=== PATIENT | male | born 1995 | race Caucasian/White ===

== ENCOUNTER 2024-08-16 10:05 | Emergency (ER) | payer OTHER, SELFPAY ==
--- NOTE | ~2024-08-16 | XR_ITS ---
EXAMINATION: XR chest 2V DATE: 08/16/2024 13:29 INDICATION: Syncope. TECHNIQUE: Frontal and lateral views of the chest were obtained. COMPARISON: CT abdomen and pelvis 08/18/2013 FINDINGS: There is no pneumonia, pleural effusion, or pneumothorax. The heart size is normal. IMPRESSION: 1. No acute cardiopulmonary disease. Reviewed, dictated and finalized at location A. ARTIST
[2024-08-16 10:45] VITALS: BP 102/63; PULSE 79; RESP 15; TEMP 36.6; O2SAT 100
--- NOTE | 2024-08-16 12:24 | ED.SYNCOPE ---
HPI - Syncope General Chief Complaint: Syncope Stated Complaint: syncopal epsiode Time Seen by Provider: 08/16/24 12:24 Focused HPI: This is a 28 year old male that presents to the ER for a syncopal episode. He went to urgent care for evaluation of cold symptoms ongoing over the last 3 days. Reports fever, cough, shortness of breath, chest pain. Reports he started to feel very lightheaded/dizzy so he stood up to walk outside and passed out. Someone caught him and lowered him to the floor. GENERAL: Well-appearing, well-nourished, and in no acute distress. HEAD: Normocephalic, atraumatic. CHEST: Clear to auscultation. ?No respiratory distress. HEART: Regular rate and rhythm.? NEURO: ?Alert and oriented x3. Patient screened in triage and initial orders placed.? ?Additional care and disposition to be based upon?diagnostic testing and treatment. Related Data Allergies Allergy/AdvReac Type Severity Reaction Status Date / Time No Known Allergies Allergy Verified 08/16/24 10:51 Review of Systems Review of Systems: All systems reviewed & are unremarkable except as noted in HPI and below Course Vital Signs Vital signs: Vital Signs Temperature 97.9 F 08/16/24 10:45 Pulse Rate 79 08/16/24 10:45 Respiratory Rate 15 08/16/24 10:45 Blood Pressure 102/63 08/16/24 10:45 Pulse Oximetry 100 08/16/24 10:45 Oxygen Delivery Room Air 08/16/24 10:45 Temperature 97.9 F 08/16/24 10:45 Pulse Rate 72 08/16/24 16:02 Respiratory Rate 21 H 08/16/24 16:02 Blood Pressure 129/69 08/16/24 16:01 Pulse Oximetry 100 08/16/24 16:02 Oxygen Delivery Room Air 08/16/24 10:45 MDM - Syncope Lab Data 08/16/24 14:19 08/16/24 14:19 Labs: Lab Results 08/16/24 Range/Units 14:19 WBC 5.3 (4.5-10.0) K/mm3 RBC 5.25 (4.6-6.20) M/mm3 Hgb 15.7 (14.0-18.0) g/dL Hct 45.3 (42.0-52.0) % MCV 86.3 (80-100) fl MCH 29.9 (26-34) pg MCHC 34.7 (32-36) g/dl RDW 13.0 (11.5-14.5) % Plt Count 245 (150-375) k/mm3 MPV 9.6 (7.4-10.4) fl Immature Gran % (Auto) 0.6 H (0-0.5) % Neut % (Auto) 66.8 (45.5-73.1) % Lymph % (Auto) 21.9 (18.3-44.2) % [place] % (Auto) 10.3 H (2.6-8.5) % Eos % (Auto) 0.0 (0-4.4) % Baso % (Auto) 0.4 (0.2-1.2) % Lymph # (Auto) 1.15 (0.9-3.2) K/mm3 [place] # (Auto) 0.5 (0.1-0.6) K/mm3 Eos # (Auto) 0.0 (0-0.3) K/mm3 Baso # (Auto) 0.0 (0.0-0.1) K/mm3 Abs Immat Gran (auto) 0.03 (0.00-0.031) K/mm3 Absolute Neuts (auto) 3.5 (1.3-6.7) K/mm3 Absolute Nucleated RBC 0.000 (0.0-0.012) K/mm3 Nucleated RBC % 0.0 (0.0-0.2) % Sodium 135 L (137-145) mmol/L Potassium 4.0 (3.4-5.0) mmol/L Chloride 100 (98-107) mmol/L Carbon Dioxide 24 (22-30) mmol/L Anion Gap 11 (4-12) mmol/L BUN 10 (9-20) mg/dL Creatinine 1.13 (0.7-1.3) mg/dL Estim Creat Clear Calc 81 ml/min Estimated GFR > 60 (59 - ) Glucose 123 H (65-110) mg/dL Calcium 9.1 (8.4-10.2) mg/dL Total Bilirubin 1.0 (0.2-1.3) mg/dL AST 58 (17-59) U/L ALT 93 H (6-50) U/L Alkaline Phosphatase 110 (38-126) U/L Troponin I < 0.012 (0.000-0.034) ng/mL Total Protein 7.0 (6.3-8.2) g/dL Albumin 4.4 (3.5-5.1) g/dL Influenza A (RT-PCR) Negative (Negative) Influenza B (RT-PCR) Positive A (Negative) RSV (RT-PCR) Negative (Negative) SARS-CoV-2 RNA (RT-PCR) Negative (Negative) Imaging Data Radiologist's impression: ITS Impressions Chest X-Ray 08/16/24 13:37 IMPRESSION: 1. No acute cardiopulmonary disease. Discharge Plan Discharge Clinical Impression: Syncope and collapse, Influenza B Patient Disposition: Home, Self-Care Condition: Stable Instructions: Antibiotic Form, Syncope (DC), Influenza (DC) Additional Instructions: He tested positive for influenza, your vital signs have been stable, your workup was very reassuring, no electrolyte problems, dehydration or cardiac issues. Follow-up with regular doctor. We will send you home with medications including Tamiflu, guaifenesin, Zofran for nausea, Toradol for aches and pains. Maintain good oral hydration, return with any concerns. Patient Language: Kiswahili Prescriptions: New benzonatate 200 mg capsule 200 mg PO TID PRN (Reason: cough) Qty: 20 0RF ketorolac 10 mg tablet 10 mg PO Q8H PRN (Reason: pain) 5 Days Qty: 20 0RF Rx Instructions: maximum total duration of 5 days from all oral, intranasal, or parenteral formulations ondansetron 4 mg tablet,disintegrating 4 mg PO Q8H PRN (Reason: nausea and vomiting) Qty: 10 0RF guaifenesin [Mucinex] 1,200 mg tablet extended release 12hr 1,200 mg PO Q12H Qty: 20 0RF oseltamivir [Tamiflu] 75 mg capsule 75 mg PO Q12H 5 Days Qty: 10 0RF Follow-up/Referrals: UNKNOWN,DOCTOR [Primary Care Provider] - Time of Disposition: 15:47
--- NOTE | 2024-08-16 12:26 | ECG_ITS ---
Test Date: 2024-08-16 14:12:53 Measurements Intervals [place] Rate: 84 P: 58 VT: 139 QRS: 38 QRSD: 91 T: 40 QT: 335 QTc: 398 Interpretive Statements SINUS RHYTHM POSSIBLE LEFT ATRIAL ENLARGEMENT INCOMPLETE RIGHT BUNDLE BRANCH BLOCK BORDERLINE T WAVE ABNORMALITY- DIFFUSE LEADS BASELINE ARTIFACT- I, II, III, AVR, AVL, AVF BORDERLINE ECG No previous ECG available for comparison Electronically Signed On 08-16-2024 14:18:09 [employer]ER by Khurram Leary D.O.
[2024-08-16 14:32] LABS: Basophils Percent Auto 0.4 % (0.2-1.2); Hematocrit 45.3 % (42.0-52.0); Hemoglobin 15.7 g/dL (14.0-18.0); Immature Granulocyte Absolute 0.03 K/mm3 (0.00-0.031); Immature Granulocyte Percent A 0.6 % (0-0.5); Lymphocytes Absolute Auto 1.15 K/mm3 (0.9-3.2); Lymphocytes Percent Auto 21.9 % (18.3-44.2); Mean Corpuscular HGB Conc 34.7 g/dl (32-36); Mean Corpuscular Hemoglobin 29.9 pg (26-34); Mean Corpuscular Volume 86.3 fl (80-100); Mean Platelet Volume 9.6 fl (7.4-10.4); Monocytes Absolute Auto 0.5 K/mm3 (0.1-0.6); Monocytes Percent Auto 10.3 % (2.6-8.5); Neutrophils Absolute Auto 3.5 K/mm3 (1.3-6.7); Neutrophils Percent Auto 66.8 % (45.5-73.1); Platelet Count Result 245 k/mm3 (150-375); Red Blood Count 5.25 M/mm3 (4.6-6.20); White Blood Count 5.3 K/mm3 (4.5-10.0)
[2024-08-16 14:43] LABS: Alanine Aminotransferase 93 U/L (6-50); Albumin Level 4.4 g/dL (3.5-5.1); Alkaline Phosphatase 110 U/L (38-126); Anion Gap 11 mmol/L (4-12); Aspartate Amino Transferase 58 U/L (17-59); Blood Urea Nitrogen 10 mg/dL (9-20); Calcium 9.1 mg/dL (8.4-10.2); Carbon Dioxide 24 mmol/L (22-30); Chloride 100 mmol/L (98-107); Estimated CRCL calculation 81 ml/min; Estimated Glomerular Filt Rate > 60; Glucose 123 mg/dL (65-110); Sodium 135 mmol/L (137-145)
[2024-08-16 14:54] LABS: Troponin I < 0.012 ng/mL (0.000-0.034)
[2024-08-16 15:13] LABS: Influenza A QL RT-PCR Negative (Negative); Influenza B QL RT-PCR Positive (Negative); RSV RNA, RT-PCR Negative (Negative); SARS-CoV-2 RNA PCR Negative (Negative)
[2024-08-16 15:25] VITALS: PULSE 83
[2024-08-16 15:26] VITALS: BP 130/77; PULSE 79; RESP 17; O2SAT 100
--- NOTE | 2024-08-16 15:31 | ED_ITS ---
HPI - Syncope General Chief Complaint: Syncope Stated Complaint: syncopal epsiode Time Seen by Provider: 08/16/24 12:24 History of Present Illness HPI narrative: 28-year-old otherwise healthy male presenting to the emergency department via EMS after a syncopal event at urgent care. Patient has not been feeling well for the last 3-4 days with positive exposures to both COVID a and influenza around the household. Expresses hot flashes, fever, chills, cough, shortness of breath. He is tolerating p.o. intake without any nausea or vomiting. No diarrhea or loose stools. Appears well hydrated. He states he was feeling hot flash tried urgent care after being swab for viral panel, had a syncopal event for brief loss of consciousness without head trauma. Is presently awake alert oriented as baseline mentation with no neurological complaints. No headache or vision changes. Related Data Allergies Allergy/AdvReac Type Severity Reaction Status Date / Time No Known Allergies Allergy Verified 08/16/24 10:51 Review of Systems 2 Review of Systems: As reviewed above in HPI Exam 2 Narrative: GENERAL: [Well-appearing, well-nourished, and in no acute distress.] HEAD: [Normocephalic, atraumatic.] EYES: [PERRLA and EOMI.] ENT: Nares clear, no rhinorrhea or epistaxis. Mucous membranes moist. NECK: Supple. CHEST: [Clear to auscultation. No respiratory distress.] HEART: [Regular rate and rhythm]. No murmur heard. [Normal peripheral pulses.] ABDOMEN: [Soft, nondistended], [nontender], [No rigidity or guarding] EXTREMITIES: Normal range of motion. [No edema.] SKIN: Warm, dry, no rash. NEURO: [No focal deficits]. Alert and oriented [x3.] PSYCH: [Normal mood and affect.] Course Vital Signs Vital signs: Vital Signs Temperature 36.6 C 08/16/24 10:45 Pulse Rate 79 08/16/24 10:45 Respiratory Rate 15 08/16/24 10:45 Blood Pressure 102/63 08/16/24 10:45 Pulse Oximetry 100 08/16/24 10:45 Oxygen Delivery Room Air 08/16/24 10:45 Temperature 36.6 C 08/16/24 10:45 Pulse Rate 79 08/16/24 15:26 Respiratory Rate 17 08/16/24 15:26 Blood Pressure 130/77 08/16/24 15:26 Pulse Oximetry 100 08/16/24 15:26 Oxygen Delivery Room Air 08/16/24 10:45 MDM - Syncope MDM Narrative Medical decision making narrative: 28-year-old otherwise healthy male presenting with flu-like symptoms a syncopal event today. Symptoms going on for last 3 days. Has syncopal event today after feeling hot flushed at Urgent Care while obtaining a COVID swab. He has normal hemodynamic vitals here, no tachycardia, fever, hypoxia. He is coughing frequently throughout the examination but is clear breath sounds. Soft nontender nondistended abdomen, symmetric pulses throughout both arms. Overall well-appearing, no headache or vision changes. No neurological findings. Patient likely had a vasovagal event versus orthostatic event versus dehydration. He is otherwise comfortable appearing. Cardiac workup was ordered including troponin, EKG, chest x-ray. Viral swabs obtained. Patient was able tolerate oral intake with a full Gatorade without any nausea vomiting. Workup shows no leukocytosis or anemia. Normal platelet count. Electrolytes within normal limits, normal renal function, normal glucose, normal LFTs, negative troponin. Patient has a positive for influenza B. chest x-ray without any acute cardiopulmonary findings. EKG shows normal sinus rhythm, no signs of acute ischemia. Patient is safe and stable for discharge home at this time after brief observation here in the emergency department. I discussed the recommendations going forward the patient including potential for Tamiflu given his duration of symptoms and young children at home with potential exposure. Patient would like to try this medication and I given prescription in addition to other symptom controlling medications. Patient was safe and stable for discharge at this time. Medical Records Attestation: I reviewed the patient's medical records. Lab Data Attestation: I reviewed the patient's lab results. 08/16/24 14:19 08/16/24 14:19 Labs: Lab Results 08/16/24 Range/Units 14:19 WBC 5.3 (4.5-10.0) K/mm3 RBC 5.25 (4.6-6.20) M/mm3 Hgb 15.7 (14.0-18.0) g/dL Hct 45.3 (42.0-52.0) % MCV 86.3 (80-100) fl MCH 29.9 (26-34) pg MCHC 34.7 (32-36) g/dl RDW 13.0 (11.5-14.5) % Plt Count 245 (150-375) k/mm3 MPV 9.6 (7.4-10.4) fl Immature Gran % (Auto) 0.6 H (0-0.5) % Neut % (Auto) 66.8 (45.5-73.1) % Lymph % (Auto) 21.9 (18.3-44.2) % [place] % (Auto) 10.3 H (2.6-8.5) % Eos % (Auto) 0.0 (0-4.4) % Baso % (Auto) 0.4 (0.2-1.2) % Lymph # (Auto) 1.15 (0.9-3.2) K/mm3 [place] # (Auto) 0.5 (0.1-0.6) K/mm3 Eos # (Auto) 0.0 (0-0.3) K/mm3 Baso # (Auto) 0.0 (0.0-0.1) K/mm3 Abs Immat Gran (auto) 0.03 (0.00-0.031) K/mm3 Absolute Neuts (auto) 3.5 (1.3-6.7) K/mm3 Absolute Nucleated RBC 0.000 (0.0-0.012) K/mm3 Nucleated RBC % 0.0 (0.0-0.2) % Sodium 135 L (137-145) mmol/L Potassium 4.0 (3.4-5.0) mmol/L Chloride 100 (98-107) mmol/L Carbon Dioxide 24 (22-30) mmol/L Anion Gap 11 (4-12) mmol/L BUN 10 (9-20) mg/dL Creatinine 1.13 (0.7-1.3) mg/dL Estim Creat Clear Calc 81 ml/min Estimated GFR > 60 (59 - ) Glucose 123 H (65-110) mg/dL Calcium 9.1 (8.4-10.2) mg/dL Total Bilirubin 1.0 (0.2-1.3) mg/dL AST 58 (17-59) U/L ALT 93 H (6-50) U/L Alkaline Phosphatase 110 (38-126) U/L Troponin I < 0.012 (0.000-0.034) ng/mL Total Protein 7.0 (6.3-8.2) g/dL Albumin 4.4 (3.5-5.1) g/dL Influenza A (RT-PCR) Negative (Negative) Influenza B (RT-PCR) Positive A (Negative) RSV (RT-PCR) Negative (Negative) SARS-CoV-2 RNA (RT-PCR) Negative (Negative) Imaging Data Attestation: I personally reviewed and interpreted this imaging study as follows: My impression: Impressions Chest X-Ray 08/16/24 13:37 IMPRESSION: 1. No acute cardiopulmonary disease. Discharge Plan Discharge Clinical Impression: Syncope and collapse, Influenza B Patient Disposition: Home, Self-Care Condition: Stable Instructions: Antibiotic Form, Syncope (DC), Influenza (DC) Additional Instructions: He tested positive for influenza, your vital signs have been stable, your workup was very reassuring, no electrolyte problems, dehydration or cardiac issues. Follow-up with regular doctor. We will send you home with medications including Tamiflu, guaifenesin, Zofran for nausea, Toradol for aches and pains. Maintain good oral hydration, return with any concerns. Patient Language: Irish Prescriptions: New benzonatate 200 mg capsule 200 mg PO TID PRN (Reason: cough) Qty: 20 0RF ketorolac 10 mg tablet 10 mg PO Q8H PRN (Reason: pain) 5 Days Qty: 20 0RF Rx Instructions: maximum total duration of 5 days from all oral, intranasal, or parenteral formulations ondansetron 4 mg tablet,disintegrating 4 mg PO Q8H PRN (Reason: nausea and vomiting) Qty: 10 0RF guaifenesin [Mucinex] 1,200 mg tablet extended release 12hr 1,200 mg PO Q12H Qty: 20 0RF oseltamivir [Tamiflu] 75 mg capsule 75 mg PO Q12H 5 Days Qty: 10 0RF Follow-up/Referrals: UNKNOWN,DOCTOR [Primary Care Provider] - Time of Disposition: 15:47
--- OUTSIDE RECORDS SUMMARY | 2024-08-16 15:57 | XMS_ITS | Clinical Summary ---
Author Organization [facility] Address [address] [place] [address] Care Team Providers Care Business Proposal Rep Name Role Phone Alanna Nguyen MD Primary Care Provider [phone] Source Comments [facility],non-owned Affiliates and Associated Physician Practices is amultiple site organization consisting of ambulatory clinics and hospital sitesin [place], [place], [place] and [place]. This disclosure is being madepursuant to the Care Everywhere program and may not contain all information available regarding this patient. Last updated 18.[facility] Allergies Active Allergy Reactions Criticality Noted Date Comments Latex Rash Low 10/02/2011 Medications * Be aware that medications may not be up to date on this document. Alwaysverify current medications with the patient. Medication Sig Dispensed Refills Start Date End Date Status amoxicillin-clavulana te (AUGMENTIN) 875-125 MG tablet Take 875 mg by mouth 2 times daily with breakfast and dinner. Active naproxen (NAPROSYN) 250 MG tablet Take 250 mg by mouth 2 times daily. Active Loratadine 10 MG CAPS Take by mouth. Active Active Problems No known active problems Social History Tobacco Use Types Packs/Day Years Used Date Smoking Tobacco: Never Assessed Sex and Gender Information Value Date Recorded Sex Assigned at Not on file Gender Identity Not on file Sexual Orientation Not on file Last Filed Vital Signs Vital Sign Reading Time Taken Comments Blood Pressure 98/68 10/02/2011 1:05 PM CDT Pulse 72 10/02/2011 1:05 PM CDT Temperature 36.6 C (97.8 F) 10/02/2011 1:05 PM CDT Respiratory Rate 20 10/02/2011 1:05 PM CDT Oxygen Saturation - - Inhaled Oxygen Concentration - - Weight 66.9 kg (147 lb 6.4 oz) 10/09/2011 11:22 AM CDT Height 168.9 cm (5' 6.5 ) 10/09/2011 11:22 AM CD T Body Mass Index 23.43 10/09/2011 11:22 AM CDT Plan of Treatment Health Maintenance Due Date Last Done Comments HIV SCREENING 09/09/2010 HEPATITIS C SCREENING 09/05/2013 DTAP/TDAP/TD VACCINES (1 - Tdap) 09/09/2014 HEPATITIS B VACCINE (1 of 3 - 19+ 3-dose series) 09/09/2014 COVID-19 VACCINE (1 - 2023-2 5 season) 2024 INFLUENZA VACCINE (#1) 2024 DEPRESSION SCREENING 07/07/2024 ZOSTER VACCINE (1 of 2) 09/09/2045 HIB VACCINE Aged Out No longer eligi ble based on patient's age to complete this topic HPV VACCINE Aged Out No longer eligi ble based on patient's age to complete this topic MENINGOCOCCAL (Group B) VACCINE Aged Out No longer eligible based on patient's age to complete this topic MENINGOCOCCAL VACCINE Aged Out No lisseth ary eligible based on patient's age to complete this topic PNEUMOCOCCAL VACCINE Aged Out No long er eligible based on patient's age to complete this topic Care Teams Business Proposal Rep Relationship Specialty Start Date End Date Alanna Nguyen MD PCP - General 10/02/11
--- OUTSIDE RECORDS SUMMARY | 2024-08-16 15:57 | XMS_ITS | Referral Summary ---
Author Organization [email or web address] Address [address] [place] [address] Care Team Providers Care Chiller Hand Name Role Phone Alanna Nguyen MD Primary Care Provider [phone] Source Comments [email or web address],non-owned Affiliates and Associated Physician Practices is amultiple site organization consisting of ambulatory clinics and hospital sitesin [place], [place], [place] and [place]. This disclosure is being madepursuant to the Care Everywhere program and may not contain all information available regarding this patient. Last updated 18.[email or web address] Allergies Active Allergy Reactions Criticality Noted Date [...] 10/09/2011 11:22 AM CDT Plan of Treatment Not on file Care Teams Chiller Hand Relationship Specialty Start Date End Date Alanna Nguyen MD PCP - General 10/02/11
--- OUTSIDE RECORDS SUMMARY | 2024-08-16 15:57 | XMS_ITS | Patient Health Summary ---
Author Organization [facility] Address [address] [place] [address] Care Team Providers Care Credit Administration Officer Name Role Phone Alanna Nguyen MD Primary Care Provider [phone] [facility],non-owned Affiliates and Associated Physician Practices is amultiple site organization consisting of ambulatory clinics and hospital sitesin [place], [place], [place] and [place]. This disclosure is being madepursuant to the Care Everywhere program and may not contain all information available regarding this patient. Last updated 18.[facility] Allergies * Latex(Rash) -Low Criticality Medications * Be aware that medications may not be up to date on this document. Alwaysverify current medications with the patient. * amoxicillin-clavulanate (AUGMENTIN) 875-125 MG tablet Take 875 mg by mouth 2 times daily with breakfast and dinner. * naproxen (NAPROSYN) 250 MG tablet Take 250 mg by mouth 2 times daily. * Loratadine 10 MG CAPS Take by mouth. Active Problems No known active problems Social [...] Mass Index 23.43 10/09/2011 11:22 AM CDT Procedures * IMAGING/RADIOLOGY/XRAY RESULTS ORDER(Performed 10/07/2011) Results * IMAGING/RADIOLOGY/XRAY RESULTS ORDER (10/07/2011 1:28 PM CDT) Anatomical Region Laterality Modality Other Narrative Transcriptions Document, Scanned - 10/07/2011 1:28 PM CDT Scanned Document IMAGING Care Teams Credit Administration Officer Relationship Specialty Start Date End Date Alanna Nguyen MD PCP - General 10/02/11
[2024-08-16 16:01] VITALS: BP 129/69; PULSE 69; RESP 22; O2SAT 97
[2024-08-16 16:02] VITALS: PULSE 72; RESP 21; O2SAT 100
== END 2024-08-16 16:09 | disposition home or self-care (01) ==
LOC: ANHED 15:55
PROVIDERS: Physician Assistant; Emergency Provider Student in an Organized Health Care Education/Training Program
DX: J10.1 Influenza due to other identified influenza virus with other respiratory manifestations (principal); R55 Syncope and collapse; Z20.822 Contact with and (suspected) exposure to COVID-19; I45.10 Unspecified right bundle-branch block; R94.31 Abnormal electrocardiogram [ECG] [EKG]
CPT/HCPCS: 36415; 71046; 80053; 84484; 85025; 87637; 93005; 99284